=== PATIENT | male | born 1985 ===

== ENCOUNTER 2023-03-03 05:08 | Day surgery (SDC) | payer BC ==
[~2023-03-03] VITALS: Ht 195.6 cm; Wt 129.5 kg
[2023-03-03] VITALS (10 sets, daily range): BP systolic 98–117; BP diastolic 59–94; PULSE 66–96; TEMP 98.2–98.7
[2023-03-03] MEDS ORDERED: PRINZIDE 12.5 M1 TA1 PO (05:52)
[2023-03-03] MEDS ORDERED: WELLBUTRIN XL300 M1 PO (05:52)
--- NOTE | 2023-03-03 18:58 | NUR ---
PATIENT ALERT AND ORIENTED X4. VSS. PATIENT HERE FOR LEFT KNEE UNICONDYLAR REPLACEMENT. IV TO RIGHT AC INT AND FLUSHES WELL. PATIENT VOIDED, HAD A BM AND TOLERATING PO. BULKY DRESSING TO LLE INTACT. HEMOVAC IN PLACE WITH BLOOD DRAINAGE, 60CC OUTPUT FOR THIS SHIFT. PATIENT REPORTS PAIN INCREASING, REQUESTS PAIN MEDICATION. 4MG IV MORPHINE ADMINISTERED FOR BREAKTHROUGH PAIN. PATIENT RESTING IN BED, CALL LIGHT IN REACH. NO FURTHER NEEDS.
--- NOTE | 2023-03-03 22:49 | NUR ---
Patient assessed around 0. Alert and oriented, and able to make needs known. Given PRN Zofran and Roxicodone around 2200 as requested. Dressing to left knee CDI. Hemovac in place. Ice to left knee. Voices no questions, needs, or concerns at this time. In bed with call light within reach.
[2023-03-04] VITALS (7 sets, daily range): BP systolic 121–132; BP diastolic 68–78; PULSE 74–87; TEMP 98–98.1
[2023-03-04 06:56] LABS: HEMOGLOBIN 12.9 g/dl (13.5-18.0)
[2023-03-04 06:58] LABS: HEMATOCRIT 35.9 % (42.0-52.0)
[2023-03-04 07:21] LABS: CALCIUM 8.8 mg/dL (8.4-10.2); CREATININE, serum 1.09 mg/dL (0.72-1.25); POTASSIUM 4.4 mmol/L (3.5-4.5)
--- NOTE | 2023-03-04 08:00 | NUR ---
PATIENT IS A&O AND SITTING UP IN BED. VSS. REPORTS MILD TO MOD DISCOMFORT IN LLE BUT IS REQUESTING SOMETHING FOR PAIN BEFORE AM THERAPY, GIVEN WITH AM MEDS. LLE DSG IS CD&I WITH [employer]. HEMOVAC DRAIN TO COMPRESSION WITH SMALL AMOUNTS OF BLOODY DRAINAGE NOTED. TEDS TO RLE. SCD'S CURRENTLY OFF. EASY SBA WITH CRUTCH. PT/OT CONSULTED. PATIENT HOPING TO DISCHARGE HOME LATER TODAY. HEAD TO TOE ASSESSMENT WNL. NO OTHER NEEDS AT THIS TIME. CALL LIGHT IN REACH.
--- NOTE | 2023-03-04 08:53 | NUR ---
Initial visit; Patient thanked Ship [employer] for looking in on him and offering God's blessings. Sunny states he is doing well and is a very pleasant person though doesn't appear to want to visit. Ship Boss wished him a rapid recovery.
--- NOTE | 2023-03-04 10:29 | NUR ---
psychiatric social worker supervisor met with patient and his , Courtney [phone] at bedside to complete discharge planning. Pt lives with his family in [place]. He sees Dr. Chavis and obtains medications from [facility] with no difficulties. Pt does not have a DPOA-HC and declines one at this time. He is independent with ADLS and uses no DME. He intends to return home at discharge and already has crutches. Pt was established at [facility] previously. SW faxed a referral for OP PT to [facility]. Discharge Plan: Home with OP PT at [facility]
[2023-03-04] MEDS ORDERED: ASPI325T6 PO (13:32)
[2023-03-04] MEDS ORDERED: ROXICODONE 55 MG/TAB PO (13:32)
[2023-03-04] MEDS ORDERED: CEPHALEXIN500 M1 PO (13:33)
[2023-03-04] MEDS ORDERED: ZOFRAN ODT4 MG PO (13:34)
[2023-03-04] MEDS ORDERED: CELEBREX 200MG200 MG PO (13:34)
--- NOTE | 2023-03-04 15:05 | NUR ---
PATIENT DISCHARGING HOME WITH TO PERSONAL VEHICLE. GAVE DISCHARGE INSTRUCTIONS, E-SCRIPTS SENT, AND DISCUSSED F/U APTS. ANSWERED QUESTIONS/CONCERNS. DC'D RIGHT AC IV AND COVERED SITE WITH G[employer]ZE [employer]. PATIENT IS DRESSED, PACKED AND ESCORTED OUT VIA WC.
== END 2023-03-04 15:05 | disposition home or self-care (01) ==
LOC: SDCO 05:08 → SURG 09:45 → SDCO 03-04 15:05
PROVIDERS: Physician Assistant
DX: M17.12 Unilateral primary osteoarthritis, left knee (principal); I10 Essential (primary) hypertension; F32.A Depression, unspecified; F17.210 Nicotine dependence, cigarettes, uncomplicated; Z79.899 Other long term (current) drug therapy
CPT/HCPCS: OP; A9284; C1713; C1776; J0665; J0690; J1100; J1580; J1885; J2250; J2270; J2405; J2704; J2795; J3010; J7120